=== PATIENT | male | born 1980 | race African-American/Black ===

== ENCOUNTER 2016-11-17 23:50 | Emergency (ER) | payer SELFPAY ==
[2016-11-18] MEDS ORDERED: Sulfameth/Trimethoprim DS 800-160mg TAB ONE (00:05)
[2016-11-18] MEDS ORDERED: Adacel (T-DAP) 0.5 ML VIAL ONE (00:10)
--- NOTE | 2016-11-18 00:17 | ERRECORD ---
[facility] EMERGENCY RECORD HPI ABSCESS (TueNov 18, 2016 00:06 JLOY) CHIEF COMPLAINT: Patient presents for evaluation of swelling, Patient presents for evaluation of pain, Patient presents for evaluation of Pt with few days of swelling adjacent to nail on right second digit. HISTORIAN: History provided by patient. LOCATION: Symptoms are localized. QUALITY: Pain is dull in nature. TIME COURSE: Gradual onset of symptoms, Symptoms are worsening. ASSOCIATED WITH: No associated chills, No associated drainage, No associated fever, No associated nausea, No associated proximal streaking, No associated warmth. COMPLICATING FACTORS: No complicating factors for wound healing. EXACERBATED BY: Patient's condition exacerbated by nothing. RELIEVED BY: Patient's condition relieved by nothing. ROS (TueNov 18, 2016 00:07 JLOY) CONSTITUTIONAL: Historian denies chills, denies fever. GI: Historian denies nausea, denies vomiting. SKIN: Historian reports cellulitis, reports induration, reports rash. PAST MEDICAL HISTORY MEDICAL HISTORY: No past medical history. (TueNov 18, 2016 00:00 KASA) MALE SURGICAL HISTORY: Patient has no surgical history. (TueNov 18, 2016 00:00 KASA) PSYCHIATRIC HISTORY: No previous psychiatric history. (TueNov 18, 2016 00:00 KASA) SOCIAL HISTORY: Patient drinks socially, twice a month, Patient currently uses drugs, abuses marijuana, Last used: 11/15/2016 23:58, Patient currently uses tobacco, smokes cigarettes, daily, Patient has smoked for 5 years, Patient smokes 1/2 packs per day, Lives at home, alone. (TueNov 18, 2016 00:00 KASA) NOTES: Nursing records reviewed, Agree with nursing records. (TueNov 18, 2016 00:07 JLOY) KNOWN ALLERGIES No Known Drug Allergies CURRENT MEDICATIONS (23:57 KASA) None VITAL SIGNS (23:55 KASA) VITAL SIGNS: BP: 139/78, Pulse: 88, Resp: 20, Temp: 97.6 (Oral), Pain: 8 (Constant), O2 sat: 98 on Room Air, Time: 11/17/2016 23:55. PHYSICAL EXAM (TueNov 18, 2016 00:07 JLOY) CONSTITUTIONAL: Vital signs reviewed, Patient appears non toxic, &a-1R&a+25V*p+0X*c9620L*c202B*c15G*c2P*p-0X&a-25V&a+1R Name: Jose Eduardo Valentino : 1980 M35 MedRec: [id number] AcctNum: [id number] Prepared: TueNov 18, 2016 00:31 by Interface Page 1 of 2 pMD [facility] EMERGENCY RECORD Patient alert and oriented to person, place and time. UPPER EXTREMITY: Upper extremity exam included findings of inspection abnormal, Right 2nd digit with paronychia. NEURO: [place] coma scale 15, Neuro exam findings include patient oriented to person, place and time, Speech normal. SKIN: Skin exam included findings of skin warm, dry, and normal in color. PSYCHIATRIC: Normal affect. MEDICATION ADMINISTRATION SUMMARY Drug Name: Adacel(Tdap Adolesn/Adult)(PF), Dose Ordered: 0.5 mL, Route: Intramuscular, Status: Given, Time: 00:16 11/18/2016, Drug Name: Bactrim DS, Dose Ordered: 1 tab(s), Route: Oral, Status: Given, Time: 00:06 11/18/2016, Detailed record available in Medication Service section. PROBLEM LIST No recorded problems DIAGNOSIS (TueNov 18, 2016 00:05 INDRA) FINAL: PRIMARY: CELLULITIS OF UNSPECIFIED FINGER. PRESCRIPTION (TueNov 18, 2016 00:04 INDRA) Bactrim DS: TABLET : 800 mg-160 mg : ORAL : Quantity: 1 Unit: tab(s) Route: ORAL Schedule: 2 times a day Dispense: 14 May substitute. Refills: No Refills . NOTES: No Refills. DISPOSITION PATIENT: Disposition Type: Discharge, Disposition: *Discharge Home. (TueNov 18, 2016 00:05 INDRA) Patient left the department. (TueNov 18, 2016 00:26 EDGAR) Maldonado: INDRA=MD Keshav, Alan HERNÁNDEZ=HALLE Trejo, Doris &a-1R&a+25V*p+0X*g2210Y*c202B*c15G*c2P*p-0X&a-25V&a+1R Name: Jose Eduardo Valentino : 1980 M35 MedRec: [id number] AcctNum: [id number] Prepared: Corinne Nov 18, 2016 00:31 by Interface Page 2 of 2 pMD MTDD
--- NOTE | 2016-11-18 00:21 | PICIS ---
[facility] EMERGENCY RECORD TRIAGE (TueNov 17, 2016 23:57 KASA) TRIAGE NOTES: Swelling to 2nd finger on right hand. Thinks it started as an ingrown a couple of days ago, pulled at it and got worse. (TueNov 17, 2016 23:57 KASA) PATIENT: NAME: Jose Eduardo Valentino, AGE: 35, GENDER: male, : Tue1980, TIME OF GREET: TueNov 17, 2016 23:51, PREFERRED LANGUAGE: Swedish, ETHNICITY: Not or , ECODE BILLING MAP: [facility] ER, SSN: [id number], Zip Code: [address], KG WEIGHT: 92.99, PHONE: , , , PERSON ID: [id number], PCP: None. (TueNov 17, 2016 23:57 KASA) COMPLAINT: RIGHT HAND INDEX FINGER PAIN. (TueNov 17, 2016 23:57 KASA) ADMISSION: URGENCY: 5 Fast Track, ADMISSION SOURCE: Home, TRANSPORT: CAR, BED: ER -03. (TueNov 17, 2016 23:57 KASA) ASSESSMENT: Assessment: Swelling to 2nd finger on right hand, Symptoms began 2 days ago. (TueNov 18, 2016 00:00 KASA) PAIN: Patient complains of pain described as, throbbing, on a scale 0-10 patient rates pain as 8, Location 2nd finger on right hand, Pain is constant, Onset was 11/15/2016, Aggravating factors:, Aggravating factors include Touch, No efforts tried to relieve symptoms. (TueNov 18, 2016 00:00 KASA) SIRS SCORING: Heart Rate 55-109 (0), Temp range 96.8-101.1 (0), respiratory rate 12-24 (0), Mental Status altered: no (0). (TueNov 18, 2016 00:00 KASA) TRIAGE SCREENING: Patient denies suicidal ideation, Patient denies presence of domestic violence. (TueNov 18, 2016 00:00 KASA) PROVIDERS: TRIAGE NURSE: Doris Trejo RN. (TueNov 17, 2016 23:57 KASA) VITAL SIGNS: BP 139/78, Pulse 88, Resp 20, Temp 97.6, (Oral), Pain 8, (Constant), O2 Sat 98, on Room Air, Time 11/17/2016 23:55. (23:55 KASA) PREVIOUS VISIT ALLERGIES: No Known Drug Allergies. (TueNov 17, 2016 23:57 KASA) No Known Drug Allergies. (TueNov 18, 2016 00:00 KASA) KNOWN ALLERGIES No Known Drug Allergies CURRENT MEDICATIONS (23:57 KASA) None VITAL SIGNS (23:55 KASA) VITAL SIGNS: BP: 139/78, Pulse: 88, Resp: 20, Temp: 97.6 (Oral), Pain: 8 (Constant), O2 sat: 98 on Room Air, Time: 11/17/2016 23:55. NURSING ASSESSMENT: EXTREMITY UPPER (TueNov 18, 2016 00:02 KASA) CONSTITUTIONAL: Patient arrives ambulatory, Gait steady, History obtained from patient, Patient appears comfortable, Patient &a-1R&a+25V*p+0X*t2524Y*c202B*c15G*c2P*p-0X&a-25V&a+1R Name: Jose Eduardo Valentino : 1980 M35 MedRec: [id number] AcctNum: [id number] Prepared: TueNov 18, 2016 00:37 by Interface Page [address] [facility] EMERGENCY RECORD cooperative, Patient alert, Oriented to person, place and time, Skin warm, Skin dry, Skin normal in color, Mucous membranes pink, Mucous membranes moist, Swelling to 2nd finger on right hand. Thinks it started as an ingrown a couple of days ago, pulled at it and got worse. LEFT UPPER EXTREMITY: Left upper extremity assessment findings include capillary refill less than 2 seconds, Skin color normal to hand, Skin temperature to hand warm, Distal sensation intact, Muscle tone normal. RIGHT UPPER EXTREMITY: Right upper extremity assessment findings include capillary refill less than 2 seconds, Skin color normal to hand, Skin temperature to hand warm, Distal sensation intact, Muscle tone normal, Inspection findings include swelling, to 2nd finger on right hand. SAFETY: Side rails up, Cart/Stretcher in lowest position, Call light within reach, Hospital ID band on. NURSING PROCEDURE: DISCHARGE NOTE (TueNov 18, 2016 00:17 KASA) DISCHARGE: Patient discharged to home, ambulating without assistance, driving self, unaccompanied, Summary of Care printed/ provided, Discharge instructions given to patient, Simple or moderate discharge teaching performed, . Educated and provided handout regarding diagnosis of: Cellulitis of unspecified, finger FOllow up with PCP In 7-10 days., Prescriptions given and instructions on side effects given, Name of prescription(s) given: Bactrim DS. BELONGINGS: Belongings and valuables with patient upon arrival to the Emergency Department include:, Belongings and valuables with patient at time of discharge include:, Belongings remain with patient, Valuables remain with patient. SAFETY: Side rails up, Cart/Stretcher in lowest position, Call light within reach, Hospital ID band on. NURSING PROCEDURE: TEACHING (TueNov 18, 2016 00:06 EDGAR) TEACHING: Prescriptions given and instructions on side effects given, Name of prescription(s) given: BACTRIM DS (SULFAMETHOXAZOLE; TRIMETHOPRIM OR SMX-TMP) is a combination of a sulfonamide antibiotic and a second antibiotic, trimethoprim. It is used to treat or prevent certain kinds of bacterial infections. It will not work for colds, flu, or other viral infections. SIDE EFFECTS THAT YOU SHOULD REPORT TO YOUR DOCTOR OR HEALTH SHOE STICKS REPAIRER SOON POSSIBLE:; allergic reactions like skin rash or hives, swelling of the face, lips, or tongue; breathing problems; fever or chills, sore throat; irregular heartbeat, chest pain; joint or muscle pain; pain or difficulty passing urine; red pinpoint spots on skin; redness, blistering, peeling or loosening of the skin, including inside the mouth; unusual bleeding or bruising; unusually weak or tired; yellowing of the eyes or skin. SIDE EFFECTS THAT USUALLY DO NOT REQUIRE MEDICAL ATTENTION (but should report if they continue or are &a-1R&a+25V*p+0X*e7325R*c202B*c15G*c2P*p-0X&a-25V&a+1R Name: Jose Eduardo Valentino : 1980 M35 MedRec: [id number] AcctNum: [id number] Prepared: TueNov 18, 2016 00:37 by Interface Page [address] [facility] EMERGENCY RECORD bothersome): diarrhea; dizziness; headache; loss of appetite; nausea, vomiting; nervousness., Notes: Additional information about the medication you were given and/or prescribed. Tell your doctor or health daycare worker if your symptoms do not improve. Drink several glasses of water a day to reduce the risk of kidney problems. Do not treat diarrhea with over the counter products. Contact your doctor if you have diarrhea that lasts more than 2 days or if it is severe and watery. This medicine can make you more sensitive to the sun. Keep out of the sun. If you cannot avoid being in the sun, wear protective clothing and use a sunscreen. Do not use sun lamps or tanning beds/booths. How to take? Take this medicine by mouth with a full glass of water. Follow the directions on the prescription label. Take your medicine at regular intervals. Do not take it more often than directed. Do not skip doses or stop your medicine early. If you miss a dose, take it as soon as you can. If it is almost time for your next dose, take only that dose. Do not take double or extra doses. Store at room temperature between 20 to 25 degrees C (68 to 77 degrees F). Protect from light. Throw away any unused medicine after the expiration date. Before taking this medication, let your health care provider know if you have any of these conditions: anemia asthma being treated with anticonvulsants if you frequently drink alcohol containing drinks kidney disease liver disease low level of folic acid or ktuwpnj-[id number]-fdbzwlqfb dehydrogenase poor nutrition or malabsorption porphyria severe allergies thyroid disorder an unusual or allergic reaction to sulfamethoxazole, trimethoprim, sulfa drugs, other medicines, foods, dyes, or preservatives or trying to get breast-feeding Do not take this medicine with any of the following medications: aminobenzoate potassium dofetilide metronidazole This medicine may also interact with the following medications: PARISA inhibitors like benazepril, enalapril, lisinopril, and ramipril control pills cyclosporine digoxin diuretics &a-1R&a+25V*p+0X*b3645K*c202B*c15G*c2P*p-0X&a-25V&a+1R Name: Jose Eduardo Valentino : 1980 M35 MedRec: [id number] AcctNum: [id number] Prepared: [facility] Nov 18, 2016 00:37 by Interface Page 3 of 7 pMD [facility] EMERGENCY RECORD indomethacin medicines for diabetes methenamine methotrexate phenytoin potassium supplements pyrimethamine sulfinpyrazone tricyclic antidepressants warfarin This list may not describe all possible interactions. Give your health care provider a list of all the medicines, herbs, non-prescription drugs, or dietary supplements you use. Also tell them if you smoke, drink alcohol, or use illegal drugs. Some items may interact with your medicine. PATIENT &/OR CAREGIVER VERBALIZED UNDERSTANDING OF THE TEACHING PROVIDED AND WAS ABLE TO DEMONSTRATE TEACHING EVIDENCED BY TEACH BACK. ORDER DETAILS Order Name: Culture & GS, Bacterial/Wound, Status: Active, Time: 00:04 11/18/2016, User: INDRA, - Ordered for: MD Parr Joshua, - Entered by: MD Parr Joshua - [facility] Nov 18, 2016 00:04, - Quantity: 1. MEDICATION ADMINISTRATION SUMMARY Drug Name: Adacel(Tdap Adolesn/Adult)(PF), Dose Ordered: 0.5 mL, Route: Intramuscular, Status: Given, Time: 00:16 11/18/2016, Drug Name: Bactrim DS, Dose Ordered: 1 tab(s), Route: Oral, Status: Given, Time: 00:06 11/18/2016, Detailed record available in Medication Service section. MEDICATION SERVICE Adacel(Tdap Adolesn/Adult)(PF): Order: Adacel(Tdap Adolesn/Adult)(PF) (diphth,pertuss(acell),tet vac/preservative free) - Dose: 0.5 mL : Intramuscular Ordered by: Alan Parr MD Entered by: Alan Parr MD [facility] Nov 18, 2016 00:12 , Acknowledged by: Doris Trejo RN [facility] Nov 18, 2016 00:16 Documented as given by: Doris Trejo RN [facility] Nov 18, 2016 00:16 Patient, Medication, Dose, Route and Time verified prior to administration. IM immunization, Amount given: 0.5 mL, Medication administered to left deltoid, Vaccination information sheet given to patient, date of publication: 01/07/2015, name of publication: Tdap Vaccine, service center coordinator: [employer], lot number: [id number], expiration: 10/07/2018, &a-1R&a+25V*p+0X*p8877Q*c202B*c15G*c2P*p-0X&a-25V&a+1R Name: Jose Eduardo Valentino : 1980 M35 MedRec: [id number] AcctNum: [id number] Prepared: TueNov 18, 2016 00:37 by Interface Page [address] [facility] EMERGENCY RECORD Correct patient, time, route, dose and medication confirmed prior to administration, Patient advised of actions and side-effects prior to administration, Allergies confirmed and medications reviewed prior to administration, Patient in position of comfort, Side rails up, Cart in lowest position. Bactrim DS: Order: Bactrim DS (sulfamethoxazole/trimethoprim) - Dose: 1 tab(s) : Oral Ordered by: Alan Parr MD Entered by: Alan Parr MD [facility] Nov 18, 2016 00:04 , Acknowledged by: Doris Trejo RN Corinne Nov 18, 2016 00:05 Documented as given by: Doris Trejo RN [facility] Nov 18, 2016 00:06 Patient, Medication, Dose, Route and Time verified prior to administration. Amount given: 1 tab, Site: Medication administered P.O., Correct patient, time, route, dose and medication confirmed prior to administration, Patient advised of actions and side-effects prior to administration, Allergies confirmed and medications reviewed prior to administration, Patient in position of comfort, Side rails up, Cart in lowest position. HPI ABSCESS (TueNov 18, 2016 00:06 INDRA) CHIEF COMPLAINT: Patient presents for evaluation of swelling, Patient presents for evaluation of pain, Patient presents for evaluation of Pt with few days of swelling adjacent to nail on right second digit. HISTORIAN: History provided by patient. LOCATION: Symptoms are localized. QUALITY: Pain is dull in nature. TIME COURSE: Gradual onset of symptoms, Symptoms are worsening. ASSOCIATED WITH: No associated chills, No associated drainage, No associated fever, No associated nausea, No associated proximal streaking, No associated warmth. COMPLICATING FACTORS: No complicating factors for wound healing. EXACERBATED BY: Patient's condition exacerbated by nothing. RELIEVED BY: Patient's condition relieved by nothing. ROS (TueNov 18, 2016 00:07 JLOY) CONSTITUTIONAL: Historian denies chills, denies fever. GI: Historian denies nausea, denies vomiting. SKIN: Historian reports cellulitis, reports induration, reports rash. PAST MEDICAL HISTORY MEDICAL HISTORY: No past medical history. (TueNov 18, 2016 00:00 KASA) MALE SURGICAL HISTORY: Patient has no surgical history. (TueNov 18, 2016 00:00 KASA) PSYCHIATRIC HISTORY: No previous psychiatric history. (TueNov 18, 2016 00:00 KASA) SOCIAL HISTORY: Patient drinks socially, twice a month, &a-1R&a+25V*p+0X*a0752W*c202B*c15G*c2P*p-0X&a-25V&a+1R Name: Jose Eduardo Valentino : 1980 M35 MedRec: [id number] AcctNum: [id number] Prepared: TueNov 18, 2016 00:37 by Interface Page [address] [facility] EMERGENCY RECORD Patient currently uses drugs, abuses marijuana, Last used: 11/15/2016 23:58, Patient currently uses tobacco, smokes cigarettes, daily, Patient has smoked for 5 years, Patient smokes 1/2 packs per day, Lives at home, alone. (TueNov 18, 2016 00:00 KASA) NOTES: Nursing records reviewed, Agree with nursing records. (TueNov 18, 2016 00:07 JLOY) PHYSICAL EXAM (TueNov 18, 2016 00:07 JLOY) CONSTITUTIONAL: Vital signs reviewed, Patient appears non toxic, Patient alert and oriented to person, place and time. UPPER EXTREMITY: Upper extremity exam included findings of inspection abnormal, Right 2nd digit with paronychia. NEURO: [place] coma scale 15, Neuro exam findings include patient oriented to person, place and time, Speech normal. SKIN: Skin exam included findings of skin warm, dry, and normal in color. PSYCHIATRIC: Normal affect. EVENTS TRANSFER: Triage to Emergency Emergency Room -03. (23:57 KASA) Removed from Emergency Emergency Room -03. (TueNov 18, 2016 00:26 KASA) INCISION AND DRAINAGE (TueNov 18, 2016 00:08 [facility]) TIMEOUT: Side and/or site verified, Patient identification confirmed, Sterile procedures observed. INCISION AND DRAINAGE: Verbal consent obtained, Incision and drainage indicated for cutaneous abscess, There are no contraindications, Incision and drainage of finger abscess, Paronychia, simple, Incision was made over area of fluctuance, Drained pus, Amount (mLs) 2-3, After procedure, wound dressed, There were no complications, Patient tolerated the procedure well. PROBLEM LIST No recorded problems DIAGNOSIS (TueNov 18, 2016 00:05 JLOY) FINAL: PRIMARY: CELLULITIS OF UNSPECIFIED FINGER. DISPOSITION PATIENT: Disposition Type: Discharge, Disposition: *Discharge Home. (TueNov 18, 2016 00:05 JL) Patient left the department. (TueNov 18, 2016 00:26 KASA) INSTRUCTION (TueNov 18, 2016 00:06 JL) DISCHARGE: PARONYCHIA. FOLLOWUP: Follow up with Primary Care Physician in 7-10 days. PRESCRIPTION (TueNov 18, 2016 00:04 JLOY) Bactrim DS: TABLET : 800 mg-160 mg : ORAL : Quantity: 1 &a-1R&a+25V*p+0X*z0461S*c202B*c15G*c2P*p-0X&a-25V&a+1R Name: Jose Eduardo Valentino : 1980 M35 MedRec: [id number] AcctNum: [id number] Prepared: TueNov 18, 2016 00:37 by Interface Page [address] [facility] EMERGENCY RECORD Unit: tab(s) Route: ORAL Schedule: 2 times a day Dispense: 14 May substitute. Refills: No Refills . NOTES: No Refills. IMAGING (TueNov 18, 2016 00:24 KASA) *DISCHARGE INSTRUCTIONS RECEIPT: Image captured from scanner. TETANUS CONSENT: Image captured from scanner. *SUPPLY CHARGE SHEET: Image captured from scanner. ADMIN DIGITAL SIGNATURE: MD Parr Joshua. (TueNov 18, 2016 00:08 [facility]) MD Parr Joshua. (TueNov 18, 2016 00:12 INDRA) Maldonado: INDRA=MD Keshav, Alan HERNÁNDEZ=HALLE Trejo, [facility] &a-1R&a+25V*p+0X*j9600V*c202B*c15G*c2P*p-0X&a-25V&a+1R Name: Jose Eduardo Valentino Belle : 1980 M35 MedRec: [id number] AcctNum: [id number] Prepared: TueNov 18, 2016 00:37 by Interface Page 7 of 7 pMD MTDD
== END 2016-11-18 00:17 | disposition home or self-care (01) ==
LOC: NAV ERS 23:50
DX: L03.011 Cellulitis of right finger (principal); F17.210 Nicotine dependence, cigarettes, uncomplicated
CPT/HCPCS: 26010; 87070; 87205; 90471; 90715

== ENCOUNTER 2019-02-19 09:02 | Emergency (ER) | payer SELFPAY ==
[2019-02-19] MEDS ORDERED: Sodium Chloride 0.9% 1,000 ML ONE (10:01)
[2019-02-19] MEDS ORDERED: diphenhydrAMINE 50 MG/ML VIAL ONE (10:01)
[2019-02-19] MEDS ORDERED: Metoclopramide HCl 10 MG/2 ML VIAL ONE (10:02)
== END 2019-02-19 11:02 | disposition home or self-care (01) ==
LOC: NAV ERS 09:02
DX: R51 Headache (principal); F17.210 Nicotine dependence, cigarettes, uncomplicated
CPT/HCPCS: 96361; 96374; 96375; J1200; J2765; J7050

== ENCOUNTER 2021-03-22 17:40 | Emergency (ER) | payer SELFPAY | END 2021-03-22 18:12 | disposition home or self-care (01) | LOC: NAV ERS 17:40 | DX: S30.861A Insect bite (nonvenomous) of abdominal wall, initial encounter (principal); S40.862A Insect bite (nonvenomous) of left upper arm, initial encounter; S40.861A Insect bite (nonvenomous) of right upper arm, initial encounter; S80.862A Insect bite (nonvenomous), left lower leg, initial encounter; S80.861A Insect bite (nonvenomous), right lower leg, initial encounter; F17.210 Nicotine dependence, cigarettes, uncomplicated; W57.XXXA Bitten or stung by nonvenomous insect and other nonvenomous arthropods, initial encounter | CPT/HCPCS: 99406 ==

== ENCOUNTER 2023-02-12 10:37 | Emergency (ER) | payer OTHER, SELFPAY | END 2023-02-12 12:04 | disposition home or self-care (01) | LOC: NAV ERS 10:37 | DX: S82.001A Unspecified fracture of right patella, initial encounter for closed fracture (principal); F17.210 Nicotine dependence, cigarettes, uncomplicated; Y04.0XXA Assault by unarmed brawl or fight, initial encounter; W18.30XA Fall on same level, unspecified, initial encounter ==

== ENCOUNTER 2023-06-08 15:49 | Outpatient (CLI) | payer OTHER | END 2023-06-08 15:50 | disposition home or self-care (01) | LOC: NAV RAD 15:49 | PROVIDERS: ATTEND Nurse Practitioner Family | DX: S82.091 Other fracture of right patella (principal) ==

== ENCOUNTER 2024-06-03 23:02 | Emergency (ER) | payer SELFPAY ==
[2024-06-03] MEDS ORDERED: Sulfameth/Trimethoprim DS 800-160mg TAB ONE (23:14)
== END 2024-06-03 23:24 | disposition home or self-care (01) ==
LOC: NAV ERS 23:02
DX: S60.466A Insect bite (nonvenomous) of right little finger, initial encounter (principal); L03.011 Cellulitis of right finger; I10 Essential (primary) hypertension; W57.XXXA Bitten or stung by nonvenomous insect and other nonvenomous arthropods, initial encounter
CPT/HCPCS: 99282